=== PATIENT | male | born 1970 | race Two or more races ===

== ENCOUNTER 2024-03-05 13:00 | Emergency (ER) | payer OTHER, SELFPAY ==
[2024-03-05 13:03] VITALS: BP 128/82
--- NOTE | 2024-03-05 13:29 | ED.GENMED ---
History of Present Illness
General
Chief Complaint: Abdominal Pain
Source: patient
Exam Limitations: none
Time Seen by Provider: 03/05/24 13:20
History of Present Illness
History of Present Illness:
See MDM
Past History
Past History
ED Past Medical History: Cancer (lymphoma)
ED Past Surgical History: Other (Bone marrow transplant)
Social History
Tobacco: Non-smoker
Alcohol: None
Phy Exam
Physical Exam
Physical Exam:
See MDM
Course
Orders/Labs/Results
Orders:
Orders
03/05/24 13:28
CT Abd/pel Without Iv Or Oral Urgent
Comment:
Reason For Exam: left flank pain
0.9% Sodium Chloride 1000 ml [Nss] 1,000 ml IV BOLUS
Ketorolac [Toradol] 30 mg IV NOW STA
Morphine Sulfate 4 mg IV NOW STA
Ondansetron Injectable [Zofran] 4 mg IV NOW STA
03/05/24 13:50
Complete Blood Count/With Diff Urgent
Comprehensive Metabolic Panel Urgent
03/05/24 15:12
Urinalysis Reflex To Culture Urgent
Date Specimen was Collected: 03/05/24
Time Specimen was Collected: 15:05
Urine Microscopic Reflex Cult Urgent
Abnormal Lab Results
03/05/24 03/05/24
13:50 15:12
WBC 16.8 H 10^3/uL
(4.8-10.8)
MCH 33.0 H pg
(27.0-31.0)
Abs Immat Gran (auto) 0.1 H 10^3/uL
(0-0.05)
Absolute Neuts (auto) 14.7 H 10^3/uL
(1.4-6.5)
Absolute Monos (auto) 0.7 H 10^3/uL
(0.1-0.6)
Immature Gran % 0.7 H %
(0-0.5)
Neutrophils % 87.6 H %
(42.2-75.2)
Lymphocytes % 7.6 L %
(20.5-51.1)
Glucose 168 H mg/dl
(70-99)
Total Bilirubin 1.7 H mg/dl
(0.2-1.3)
Ur Occult Blood Reflex 1+ A
(Negative)
03/05/24 13:50
03/05/24 13:50
Vital Signs
Initial and Last Documented VS:
Initial Vital Signs
Temp Pulse Resp BP Pulse Ox
98.3 F 59 16 128/82 100
03/05/24 13:03 03/05/24 13:03 03/05/24 13:03 03/05/24 13:03 03/05/24 13:03
Last Documented Vital Signs
Temp Pulse Resp BP Pulse Ox
98.3 F 64 18 120/72 99
03/05/24 13:03 03/05/24 14:00 03/05/24 14:09 03/05/24 14:00 03/05/24 14:00
MDM/Problems Addressed
Differential Diagnosis Includes:
HPI and MDM Narrative:
53-year-old male presenting with sudden onset of left flank pain. This occurred a few hours ago. Pain is now in the left lower quadrant. Patient planes of nausea but denies vomiting. On exam, he does have point tenderness left lower quadrant.
Will provide pain medicine will obtain CT with concern for possible kidney stone.
Physical exam
General: Uncomfortable
HEENT: protecting airway
Neck: appears supple
CV: No evidence of cyanosis
Resp: No accessory muscle use
Abd: Non-distended. Left lower quadrant tenderness
Extremities: No deformities
Neuro: alert
Psych: Normal affect
Skin: No rash to abdomen
Problems Addressed including Acute and Chronic Conditions affecting care:
1. Left flank pain
Acuity: acute
Prognosis: stable
Details: Given sudden onset, will obtain CT rule out kidney stone pathology
Updates
CT does show hydronephrosis. Patient likely passed a stone or has an infection. However, urine negative for infection. Patient is feeling better. We did discuss the incidental findings of multiple other kidney stones and hyperglycemia and
discussed outpatient. Patient still having mild pain from hydronephrosis. Will write short course of pain medicine
Differential Diagnosis (but not limited to): Diverticulitis, pyelonephritis, kidney stone
Testing considered: CT with contrast
Drug therapy (if applicable): OTC meds, please see d/c instruction regarding Rx drugs
Amount and/or Complexity of Data Reviewed
Clinical info obtained from: Patient
External data reviewed: N/A
Labs I independently reviewed (but not limited to): Mild leukocytosis and hyperglycemia
Radiology: The CT scan was personally and independently reviewed. In addition, official CT report reviewed.
Pulse Ox: not hypoxic
EKG independently reviewed: N/A
Budget Assistant: N/A
Critical Care: N/A
Risk of Complication:
Social Determinants of health: Good social support
Discussed with other providers: N/A
Escalation of Care includes Admit/Obs: After being observed in the Emergency Department, pt stable for discharge.
Occasional wrong word or 'sound a like' substitutions may have occurred due to the inherent limitations of voice recognition software. Read the chart carefully and recognize, using context, where substitutions have occurred.
*Critical Care Note
Total Time (30-74mins, 75-104mins- exclusive of procedures): Not Applicable
ED Attending Note
-
Portions of this chart may have been created with voice recognition software.� Occasional wrong word or��sound alike� substitutions may have occurred due to the inherent limitations of voice recognition software.
Discharge Plan
Departure
Patient Disposition: Home (Routine Discharge)
Date of Disposition: 03/05/24
Time of Disposition: 15:44
Patient with high blood pressure during this ER visit?: No
Discharge Problem:
Kidney stone on left side, Hyperglycemia
Instructions: Kidney Stones (DC)
Prescriptions:
New
oxycodone 5 mg tablet
5 mg PO Q8H PRN (Reason: Pain) Qty: 7 0RF
Referrals:
Lorena Kern MD [Family Provider] -
Activity Restrictions/Additional Instructions:
Please return for any worsening symptoms.
You may return at any time if you have further concerns.
Please follow up with your doctor at the first available appointment, preferably this week.
Please have your elevated blood sugar reevaluated.
Thank you for choosing [facility].
Interventions
Interventions:
*Risk Screen - Suicide Last Done: 03/05/24 13:03
*General Assessment Last Done: 03/05/24 13:03
*Neglect/Abuse Screening Last Done: 03/05/24 13:03
ED- Fall Risk Assessment Last Done: 03/05/24 14:10
*ED COVID-19 Vaccine History Last Done: 03/05/24 14:09
ZT-Wzexnn-Nrjhsihpnj Assessment Last Done: 03/05/24 14:10
Discharge Date and Time
Print Language: SLOVAK
[2024-03-05 13:34] VITALS: BMI 25.5
[2024-03-05] MEDS: ZOFRAN 4 MG IV ×2 (13:40)
[2024-03-05] MEDS: NSS 1000 IV (13:40)
[2024-03-05] MEDS: TORADOL 30 MG IV (13:41)
[2024-03-05] MEDS: MORPHINE SULFATE 4 MG IV (13:41)
[2024-03-05 13:46] VITALS: BP 134/72
[2024-03-05 14:00] VITALS: BP 120/72
[2024-03-05 14:00] LABS: % Basophils 0.2 % (0-2); % Immature Granulocytes 0.7 % (0-0.5); % Lymphocytes 7.6 % (20.5-51.1); % Monocytes 3.9 % (1.7-9.3); % Neutrophils 87.6 % (42.2-75.2); Absolute Immature Granulocytes 0.1 10^3/uL (0-0.05); Absolute Lymphocytes 1.3 10^3/uL (1.2-3.4); Absolute Monocytes 0.7 10^3/uL (0.1-0.6); Absolute Neutrophils 14.7 10^3/uL (1.4-6.5); Hematocrit 43.1 % (39.0-52.0); Hemoglobin 15.6 g/dL (13.0-18.0); Mean Corp Hgb Conc. 36.2 g/dL (33.0-37.0); Mean Corpuscular Volume 91.1 fL (80.0-94.0); Mean Platelet Volume 10.3 fL (7.4-10.4); Nucleated Red Blood Cells % 0 % (-); Platelet Count 159 10^3/uL (130-400); Red Blood Cell Count 4.73 10^6/uL (4.70-6.10); White Blood Cell Count 16.8 10^3/uL (4.8-10.8)
[2024-03-05 14:11] LABS: ALT (SGPT) 35 U/L (0-50); AST (SGOT) 31 U/L (17-59); Albumin 4.6 g/dl (3.5-5.0); Alkaline Phosphatase 50 U/L (38-126); Blood Urea Nitrogen 17 mg/dl (9-20); Calcium 9.3 mg/dl (8.4-10.2); Carbon Dioxide 24 mmol/L (22-30); Chloride 102 mmol/L (98-107); Estimated Creatinine Clearance 72 ml/min; Glucose 168 mg/dl (70-99); Potassium 4.3 mmol/L (3.5-5.1); Sodium 139 mmol/L (135-145); Total Bilirubin 1.7 mg/dl (0.2-1.3); Total Protein 6.9 g/dl (6.3-8.2); eGFR > 60.00
[2024-03-05 15:18] LABS: Urine Albumin Negative (Neg - Trace); Urine Bilirubin Negative (Negative); Urine Character Clear (Clear); Urine Color Yellow; Urine Glucose Negative (Negative); Urine Ketone Negative (Negative); Urine Leukocyte Negative (Negative); Urine Nitrite Negative (Negative); Urine Occult Blood 1+ (Negative); Urine Specific Gravity 1.015 (<1.030); Urine Urobilinogen Negative (Neg - 1+)
[2024-03-05 15:39] LABS: Urine Red Blood Cell 0-2 /HPF (0-2); Urine Squamous Cell 0-2 /LPF (Few)
[2024-03-05 15:40] LABS: Urine White Cell 0-2 /HPF (0-5)
[2024-03-05] MEDS: PERCOCET 5/325 1 TABLET PO (15:51)
== END 2024-03-05 16:00 | disposition home or self-care (01) ==
LOC: EMR 13:00
PROVIDERS: EMERGENCY PHYSICIAN Student in an Organized Health Care Education/Training Program; FAMILY PHYSICIAN Pediatrics
DX: N13.2 Hydronephrosis with renal and ureteral calculous obstruction (principal); R73.9 Hyperglycemia, unspecified
CPT/HCPCS: 99284; 96374; 96375 ×2; 96361; 74176; 80053; 81003; 81015; 85025